=== PATIENT | male | born 1955 | race Hispanic/Latino ===

== ENCOUNTER 2022-05-19 13:44 | Emergency (ER) | payer SELFPAY ==
--- NOTE | ~2022-05-19 | CT_ITS ---
EXAMINATION: CT abdomen pelvis w con DATE: 05/19/2022 19:37 INDICATION: intense pain with rectal exam, suspect abscess TECHNIQUE: Computed tomography (CT) of the abdomen and pelvis was performed with 100 mL Omnipaque-350 intravenous contrast. Automated exposure control and iterative reconstruction technique were employe d. The dose-length product was 206.33 mGy-cm. COMPARISON: None. FINDINGS: Lower thorax: Unremarkable Liver: Diffuse fatty infiltration. Biliary/Gallbladder: Gallbladder is normal. No bile duct dilation. Pancreas: No mass or duct dilation. Spleen: Normal. Adrenals:No mass. Kidneys: No suspicious mass, stone, or hydronephrosis. Multiple bilateral hypodensities, too small to characterize but most likely represent cysts GI tract: Small hiatal hernia. Distal esophageal and gastric wall edema No small or large bowel dilat ion. Normal appendix. Mesentery/Peritoneum: No ascites, mass, or free air. Retroperitoneum: No mass. Atherosclerotic abdominal aortic and/or arterial calcifications. Pelvis: Bladder wall thickening, likely secondary to outlet compromise. Prostatomegaly.. Soft Tissues: 1.2 x 2.0 soft tissue density along the right aspect of the rectum/peritoneum. No discr ete rim-enhancing fluid collection detected at this time. Bones: No acute osseous finding. IMPRESSION: Steatosis. Esophagitis/gastritis. 2 cm nodular right perirectal soft tissue mass which may represent phlegmon/early abscess. Reviewed, dictated and finalized at location K. [employer] IMPRESSION: Steatosis. Esophagitis/gastritis. 2 cm nodular right perirectal soft tissue mas s which may represent phlegmon/early abscess.
[2022-05-19 13:46] VITALS: BP 126/72; PULSE 80; RESP 20; TEMP 36.3; O2SAT 99
[2022-05-19 15:39] VITALS: BP 127/64; PULSE 73; RESP 18; TEMP 36.9; O2SAT 99
--- NOTE | 2022-05-19 18:03 | ED.GENADULT ---
HPI - General Adult General Chief complaint: Extremity Injury, Lower <Brittny Chamorro PA-C - Last Filed: 05/22/22 09:15> Stated complaint: right hip/bottock pain <MAYE Khan Last Filed: 05/22/22 09:15> Time Seen by Provider: 05/19/22 17:40 <MAYE Khan Last Filed: 05/22/22 09:15> History of Present Illness HPI narrative: Patient is a 66-year-old male here for evaluation of pain in his buttocks for the past week. He tells me that he has a history of perirectal abscesses that required drainage in the OR. States that his pain today feels very similar. He has not attempted any medicine for pain. Denies fevers or chills, nausea or vomiting. Patient is a poor historian and is not entirely sure the surgery he had earlier this year. <MAYE Khan Last Filed: 05/22/22 09:15> Related Data Allergies/adverse reactions: Allergies Allergy/AdvReac Type Severity Reaction Status Date / Time No Known Allergies Allergy Verified 05/21/22 14:22 <MAYE Khna Last Filed: 05/22/22 09:15> Review of Systems Review of Systems: Gen: Denies fevers or chills Eyes: Denies eye pain or visual change ENT: Denies congestion Respiratory: Denies shortness of breath or cough CV: Denies chest pain or palpitations GI: Denies abdominal pain nausea, emesis or diarrhea reports perirectal pain. Denies burning, urgency, frequency or hematuria Musculoskeletal: Denies back pain or muscle pain Neuro: Denies numbness, tingling, weakness or focal weakness Skin: Denies rash Except as documented, all other systems reviewed and negative <MAYE Khan Last Filed: 05/22/22 09:15> [facility] Surgical History Surgical History: Surgical History (Updated 05/21/22 @ 16:48 by Remy Hackett DO) History of incision and drainage Perirectal abscess Hx of colonoscopy 2020 at [facility] <Brittny Chamorro PA-C - Last Filed: 05/22/22 09:15> Social History Social History: Social History (Updated 05/21/22 @ 16:49 by Remy Hackett, ) Smoking status: Never smoker <Brittny Chamorro PA-C - Last Filed: 05/22/22 09:15> Exam Narrative: APPEARANCE: Well appearing, no pain in distress, well-nourished. Head: Normocephalic and atraumatic. EYES: PERRLA/EOMI, conjunctivae clear NOSE: No nasal drainage EARS: External ear normal in appearance THROAT: Oropharynx is clear. Mucous membranes are moist. NECK: Supple. No adenopathy, no masses. RESPIRATORY: Airway patent, respirations nonlabored. Clear to auscultation bilaterally, no rales, rhonchi, wheezing. CARDIOVASCULAR: Regular rate and rhythm without murmurs, rubs, or gallops. ABDOMINAL: Normoactive bowel sounds. Soft, nontender, nondistended. No rebound tenderness or guarding. : Exquisite tenderness noted with internal rectal exam, no visible hemorrhoid or skin tear, no palpable abscess MUSCULOSKELETAL: Extremities are warm and well-perfused. Moves all extremities well. No edema. NEURO: Normal speech. No focal neurologic deficits. SKIN: Skin is warm and dry. No rashes. PSYCHIATRIC: Normal affect/mood. <Brittny Chamorro PA-C - Last Filed: 05/22/22 09:15> Course Course Emergency Course: Care signed out to myself at shift change pending CT scan results. CT showing perirectal soft tissue mass consistent with phlegmon/early abscess. Discussed case with Dr. Hackett, general surgery, advised that if patient otherwise stable and pain can be controlled, can d/c with oral abx and be seen in the office tomorrow or for further eval. Augmentin/Flagyl. Discussed lab and imaging findings and gen surg recommendations with patient and son. Patient agrees with this plan. Given first dose of abx in the ED. [place] also sent to pharmacy. Patient given return precautions. D/C in stable condition. <Lashonda White PA-C - Last Filed: 05/19/22 22:49> Vital Signs Vital s
[2022-05-19 18:22] LABS: Basophils Percent Auto 0.7 % (0.2-1.2); Eosinophils Absolute Auto 0.2 K/mm3 (0-0.3); Eosinophils Percent Auto 2.7 % (0-4.4); Hematocrit 41.4 % (42.0-52.0); Hemoglobin 13.7 g/dL (14.0-18.0); Immature Granulocyte Absolute 0.01 K/mm3 (0.00-0.031); Immature Granulocyte Percent A 0.2 % (0-0.5); Lymphocytes Absolute Auto 2.95 K/mm3 (0.9-3.2); Lymphocytes Percent Auto 48.9 % (18.3-44.2); Mean Corpuscular HGB Conc 33.1 g/dl (32-36); Mean Corpuscular Hemoglobin 31.1 pg (26-34); Mean Corpuscular Volume 93.9 fl (80-100); Monocytes Absolute Auto 0.6 K/mm3 (0.1-0.6); Monocytes Percent Auto 10.3 % (2.6-8.5); Neutrophils Absolute Auto 2.3 K/mm3 (1.3-6.7); Neutrophils Percent Auto 37.2 % (45.5-73.1); Platelet Count Result 232 k/mm3 (150-375); Red Blood Count 4.41 M/mm3 (4.6-6.20); Red Cell Distribution Width 13.7 % (11.5-14.5)
[2022-05-19 18:28] LABS: Alanine Aminotransferase 22 U/L (6-50); Albumin Level 4.5 g/dL (3.5-5.1); Alkaline Phosphatase 97 U/L (38-126); Anion Gap 6 mmol/L (8-16); Aspartate Amino Transferase 26 U/L (17-59); Bilirubin,Total 0.3 mg/dL (0.2-1.3); Blood Urea Nitrogen 11 mg/dL (9-20); Calcium 8.8 mg/dL (8.4-10.2); Carbon Dioxide 29 mmol/L (22-30); Chloride 100 mmol/L (98-107); Estimated CRCL calculation 57 ml/min; Estimated Glomerular Filt Rate > 60; Glucose 94 mg/dL (65-110); Potassium 3.8 mmol/L (3.4-5.0); Sodium 135 mmol/L (137-145)
[2022-05-19] MEDS: KETOROLAC 15 MG/ML VIAL (*BKC) IV PUSH (19:01)
[2022-05-19 20:52] LABS: Add Urine Microscopic? NO; Appearance Urine Clear (Clear); Bilirubin Urine Negative (Negative); Blood Urine Negative (Negative); Color Urine Yellow (Yellow); Glucose Urine UA Negative (Negative); Ketones Urine Negative (Negative); Leukocyte Esterase Ur Negative LEU/UL (Negative); Nitrate Urine Negative (Negative); Protein Urine Negative (Negative); Specific Grav Ur <= 1.005 (1.001-1.035); Urobilinogen Urine 0.2 mg/dL (<2.0); pH Urine 6.5 (5.0-9.0)
[2022-05-19] MEDS: AMOXICILLIN/CLAVULANATE K 875-125 MG TAB 1 TABLET PO (21:29)
[2022-05-19] MEDS: metroNIDAZOLE 250 MG TABLET 500 MG PO (21:29)
== END 2022-05-19 21:54 | disposition home or self-care (01) ==
PROVIDERS: Physician Assistant; Emergency Provider Physician Assistant
DX: K62.89 Other specified diseases of anus and rectum (principal)
CPT/HCPCS: 36415; 74177; 80053; 81003; 83605; 85025; 96374; 99284; A9270; J1885; Q9967

== ENCOUNTER 2023-10-02 10:05 | Outpatient (CLI) | payer SELFPAY ==
--- NOTE | ~2023-10-02 | XR_ITS ---
EXAMINATION: XR chest 2V DATE: 10/02/2023 10:40 INDICATION: Contact with tuberculosis. TECHNIQUE: Frontal and lateral views of the chest were obtained. COMPARISON: None. FINDINGS: There is mild scarring at right lung apex. There is mild atelectasis at left lung base. No pleural effusion or pneumothorax. The heart size is normal. IMPRESSION: 1. Mild scarring at right lung apex and mild atelectasis at left lung base. Reviewed, dictated and finalized at location A.
== END 2023-10-02 10:06 | disposition home or self-care (01) ==
LOC: ANHIMG 10:06
PROVIDERS: Visit Provider Pediatrics
DX: Z20.1 Contact with and (suspected) exposure to tuberculosis (principal); R91.8 Other nonspecific abnormal finding of lung field
CPT/HCPCS: 71046